=== PATIENT | male | born 1950 | race Caucasian/White ===

== ENCOUNTER 2017-05-20 15:43 | Emergency (ER) | payer SELFPAY ==
[2017-05-20 15:44] VITALS: BMI 27.8
[2017-05-20 15:59] VITALS: RESP 20; TEMP 97.3
--- NOTE | 2017-05-20 16:35 | C.PDOC ---
History Of Present Illness 66 male presents to the ED for evaluation of cough and congestion which began 3 days ago. Patient states his cough is productive of green sputum. Patient is unable to sleep at night due to symptoms and denies fever, chills, ear pain, throat pain at this time. Time Seen by Provider: 05/20/17 16:00 Chief Complaint (Nursing): Cough, Cold, Congestion History Per: Patient History/Exam Limitations: no limitations Onset/Duration Of Symptoms: Days (3) Current Symptoms Are (Timing): Still Present Sick Contacts (Context): None Associated Symptoms: Cough, Sputum (green ). denies: Fever, Chills, Sore Throat Ear Symptoms: Bilateral: None Additional History Per: Patient Past Medical History Reviewed: Historical Data, Nursing Documentation, Vital Signs Vital Signs: Last Vital Signs Temp 97.3 F L 05/20/17 15:55 Pulse 80 05/20/17 16:49 Resp 20 05/20/17 16:49 BP 120/82 05/20/17 16:49 Pulse Ox 100 05/20/17 17:07 - Medical History PMH: HTN Surgical History: No Surg Hx - [facility] Procedures INSERT INDWELLING CATH (04/14/13) REMOV URIN DRAINAGE NEC (04/16/13) Family History: States: Unknown Family Hx - Social History Hx Tobacco Use: No Hx Alcohol Use: No Hx Substance Use: No - Immunization History Hx Tetanus Toxoid Vaccination: No Hx Influenza Vaccination: No Hx Pneumococcal Vaccination: No Review Of Systems Constitutional: Negative for: Fever, Chills ENT: Positive for: Nose Congestion. Negative for: Ear Pain, Throat Pain Respiratory: Positive for: Cough, Sputum (green ) Physical Exam - Physical Exam Appears: Non-toxic, No Acute Distress Skin: Normal Color, Warm, Dry Head: Atraumatic, Normacephalic Eye(s): bilateral: Normal Inspection Ear(s): Bilateral: Normal Nose: Normal, No Discharge Oral Mucosa: Moist Throat: Normal, No Erythema, No Exudate Neck: Supple Chest: Symmetrical, No Deformity, No Tenderness Cardiovascular: Rhythm Regular, No Murmur Respiratory: Normal Breath Sounds, No Rales, No Rhonchi, No Wheezing Extremity: Normal ROM, Capillary Refill (less than 2 seconds ) Neurological/Psych: Oriented x3, Normal Speech, Normal Cognition Gait: Steady ED Course And Treatment O2 Sat by Pulse Oximetry: 100 (on RA) Pulse Ox Interpretation: Normal Medical Decision Making Medical Decision Making: Assessment: Bronchitis Progress: Zithromax PO, Sudafed PO administered. On reassessment, patient is resting comfortably, showing no signs of distress and is stable for discharge. Patient will be discharged with Rx for Tussionex PO , Zithromax PO, Sudafed PO and Ventolin IH. Patient is advised to follow up with his PMD within 1-2 days for further evaluation. Disposition Counseled Patient/Family Regarding: Diagnosis, Need For Followup, Rx Given - Disposition Referrals: [facility] [Outside] Disposition: HOME/ ROUTINE Disposition Time: 16:31 Condition: GOOD Additional Instructions: follow up with your doctor or clinic in 2 days call to make an appointment take medications as prescribed return to hospital if symptoms worsens or progress Prescriptions: Albuterol HFA [Ventolin HFA 90 mcg/actuation (8 g)] 2 puff IH [id number] #1 puff Azithromycin [Zithromax] 250 mg PO DAILY #4 tab Hydrocodone/Chlorpheniramine [Tussionex] 5 ml PO QPM #80 ml Pseudoephedrine HCl [Sudafed] 30 mg PO QID #12 tablet Instructions: Upper Respiratory Infection (ED) Forms: Gen Discharge Inst Upper Sorbian, [employer] (Lao) Print Language: FRENCH - Clinical Impression Clinical Impression: Bronchitis - Scribe Statement The provider has reviewed the documentation as recorded by the Scribe (Dotty Bradford) Provider Attestation: All medical record entries made by the Scribe were at my direction and personally dictated by me. I have reviewed the chart and agree that the record accurately reflects my personal performance of the history, physical exam, medical decision making, and the department course for this patient. I have also personally directed, reviewed, and agree with the discharge instructions and disposition.
[2017-05-20 16:50] VITALS: BP 120/82; PULSE 80
[2017-05-20 16:52] VITALS: O2SAT 100
== END 2017-05-20 17:18 | disposition home or self-care (01) ==
LOC: C.ER 15:43
DX: J40 Bronchitis, not specified as acute or chronic (principal)

== ENCOUNTER 2018-10-29 09:51 | Outpatient (CLI) | payer SELFPAY | END 2018-10-29 09:52 | disposition home or self-care (01) | LOC: C.LAB 09:51 ==